=== PATIENT | male | born 1955 | race Caucasian/White ===

== ENCOUNTER 2022-09-18 14:19 | Outpatient (CLI) | payer BC | END 2022-09-18 14:20 | disposition critical access hospital (66) | LOC: EMS 14:19 | DX: M25.551 Pain in right hip (principal); R25.2 Cramp and spasm; W01.0XXA Fall on same level from slipping, tripping and stumbling without subsequent striking against object, initial encounter; Y92.002 Bathroom of unspecified non-institutional (private) residence as the place of occurrence of the external cause | CPT/HCPCS: A0425; A0429 ==

== ENCOUNTER 2022-09-18 14:25 | Emergency (ER) | payer BC ==
[2022-09-18] MEDS ORDERED: HYDROmorphone 1 MG/ML CARPUJECT IVP STA (14:39)
--- NOTE | 2022-09-18 14:41 | ED Physician Documentation ---
History of Present Illness - Stated complaint Stated Complaint: GLF/R HIP PX - Additonal information Additional information: 66-year-old male presents to the emergency department for acute right hip pain. He was repairing his shower when he stepped over the threshold tripping falling directly onto the right side. He reports that he had immediate pain in his right lateral hip and was unable to bear weight. No history of previous injury. Patient was administered to leave by his prior to arrival in the ER Review of Systems Constitutional: reports: Reviewed and negative Musculoskeletal: reports: Joint pain Neurologic: reports: Reviewed and negative Psychiatric: reports: Reviewed and negative Endocrine: reports: Reviewed and negative PD PAST MEDICAL HISTORY - Present Medications Home Medications: Ambulatory Orders Medication Instructions Recorded Confirmed No Known Home Medications 09/18/22 09/18/22 - Allergies Allergies/Adverse Reactions: Allergies Allergy/AdvReac Type Severity Reaction Status Date / Time No Known Drug Allergies Allergy Verified 09/18/22 14:45 PD ED PE NORMAL - General General: Alert and oriented X 3, No acute distress - HEENT HEENT: Atraumatic, Moist mucous membranes - Neck Neck: Supple, no meningeal sign, No adenopathy, C-Spine cleared by NEXUS criteria - Cardiac Cardiac: RRR, No murmur - Back Back: No spinal TTP (No tenderness elicited with palpation of the cervical thoracic or lumbar spine. No step-off or deformity.) - Derm Derm: Normal color, Warm and dry - Extremities Extremities: No: No tenderness to palpate (No malrotation or shortening of the right leg and hip. Tenderness elicited with palpation of the right lateral hip some spasm is appreciated. Pain laterally with internal and external rotation but not directly within the joint itself. 2+ distal pulse. Neurovascularly intact) Results - Vitals Vitals: Vital Signs - 24 hr 09/18/22 14:38 Temperature 36.4 C L Heart Rate 84 Respiratory 16 Rate Blood Pressure 164/101 H O2 Saturation 100 Oxygen O2 Source Room air - Labs Labs: Laboratory Tests 09/18/22 09/18/22 09/18/22 15:02 15:24 15:36 WBC 12.3 H RBC 4.76 Hgb 15.2 Hct 45.0 MCV 94.5 H MCH 31.9 H MCHC 33.8 RDW 12.4 Plt Count 200 MPV 8.8 Neut # (Auto) 10.4 H Lymph # (Auto) 1.1 L Gaines # (Auto) 0.7 Eos # (Auto) 0.0 Baso # (Auto) 0.0 Absolute Nucleated RBC 0.00 Nucleated RBC % 0.0 INR (Fingerstick) 1.1 Sodium 138 Potassium 4.0 Chloride 104 Carbon Dioxide 27 Anion Gap 7.0 BUN 23 H Creatinine 0.9 Estimated GFR (MDRD) 85 L Glucose 131 H Calcium 8.9 Total Bilirubin 0.5 AST 23 ALT 22 Alkaline Phosphatase 58 Total Protein 7.5 Albumin 4.5 Globulin 3.0 Albumin/Globulin Ratio 1.5 Lipase 46 - Rads (name of study) right hip Relevant Findings:: Final report received (Transcervical, angulated fracture of the right femoral neck) PD Medical Decision Making - ED course Complexity details: reviewed results, re-evaluated patient, d/w patient ED course: 66-year-old male who has no pertinent past medical history and is not anticoagulated presents emergency department after ground-level fall at home which she fell directly onto the right hip. He did strike his head but did not lose consciousness. He is unable to ambulate at home. On presentation to the emergency department he has moderate tenderness in the right lateral hip. Does not allow any range of motion. Palpable spasm is noted. An x-ray of the hip does show a transverse angulated fracture at the femoral neck. I did obtain a CBC and electrolytes and find no acute worrisome findings. He is hemodynamically stable. No hypotension or tachycardia. He is denying pain in the head cervical thoracic or lumbar spine. Unfortunately [facility] does not have orthopedic services available through the weekend. As such we have reached out to [facility] and the patient has been accepted under their auto except criteria. I spoken with the ED physician Dr. Carvajal Who has excepted the patient. It should be noted that we reached out to multiple other medical's facilities including [facility], [facility] and [facility] and we were denied for transfer or placed on a wait list. Departure - Departure Disposition: 02 Transfer Acute Care Hosp Clinical Impression: Closed right hip fracture Qualifiers: Encounter type: initial encounter Qualified Code(s): S72.001A - Fracture of unspecified part of neck of right femur, initial encounter for closed fracture Condition: Stable Record reviewed to determine appropriate education?: Yes
--- NOTE | 2022-09-18 15:01 | XRAY Report ---
PROCEDURE: Hip w/Pelvis 2-3V RT INDICATIONS: Ground-level fall, right hip pain. TECHNIQUE: AP pelvis with lateral view(s) of the right hip(s). COMPARISON: None. FINDINGS: Bones: Transcervical, angulated fracture of the right femoral neck. Soft tissues: The visualized bowel gas pattern is normal. No suspicious soft tissue calcifications. IMPRESSION: Transcervical, angulated fracture of the right femoral neck. Reviewed by: Eusebio Miller on 09/18/2022 3:00 PM PDT Approved by: Eusebio Miller on 09/18/2022 3:00 PM PDT Station ID: [id number]
[2022-09-18 15:08] LABS: BASOPHILS % (AUTO) 0.2 %; EOSINOPHILS % (AUTO) 0.1 %; HGB - HEMOGLOBIN 15.2 g/dL (14.0-18.0); LYMPHOCYTES # (AUTO) 1.1 10^3/uL (1.5-3.5); LYMPHOCYTES % (AUTO) 9.1 %; MEAN CORPUSCULAR HEMOGLOBIN 31.9 pg (27.0-31.0); MEAN CORPUSCULAR HGB CONC 33.8 g/dL (32.0-36.0); MEAN CORPUSCULAR VOLUME 94.5 fL (80.0-94.0); MEAN PLATELET VOLUME 8.8 fL (7.4-11.4); MONOCYTES # (AUTO) 0.7 10^3/uL (0.0-1.0); MONOCYTES % (AUTO) 5.5 %; NEUTROPHILS # (AUTO) 10.4 10^3/uL (1.5-6.6); NEUTROPHILS % (AUTO) 84.8 %; PLT - PLATELET COUNT 200 10^3/uL (130-450); RED BLOOD COUNT 4.76 10^6/uL (4.70-6.10); RED CELL DISTRIBUTION WIDTH 12.4 % (12.0-15.0); WHITE BLOOD COUNT 12.3 x10^3/uL (4.8-10.8)
[2022-09-18 15:41] LABS: ALBUMIN 4.5 g/dL (3.2-5.5); ALBUMIN/GLOBULIN RATIO 1.5 (1.0-2.2); BILIRUBIN,TOTAL 0.5 mg/dL (0.2-1.0); CALCIUM 8.9 mg/dL (8.5-10.3); CREATININE 0.9 mg/dL (0.6-1.2); TOTAL PROTEIN 7.5 g/dL (6.7-8.2)
[2022-09-18] MEDS ORDERED: diazePAM INJ 5 MG/ML SYRINGE IVP STA (16:04)
[2022-09-18 16:13] VITALS: BP 143/85
== END 2022-09-18 16:48 | disposition short-term general hospital (02) ==
LOC: ED 14:25
DX: S72.001A Fracture of unspecified part of neck of right femur, initial encounter for closed fracture (principal); W01.0XXA Fall on same level from slipping, tripping and stumbling without subsequent striking against object, initial encounter
CPT/HCPCS: 73502; 80053; 83690; 85025; 85610; 87635; 96374; 96375; 99285; J1170; 36415

== ENCOUNTER 2022-09-18 16:45 | Outpatient (CLI) | payer BC | END 2022-09-18 23:59 | disposition short-term general hospital (02) | LOC: EMS 16:45 | PROVIDERS: ATTEND Registered Nurse | DX: S72.051A Unspecified fracture of head of right femur, initial encounter for closed fracture (principal); W01.0XXA Fall on same level from slipping, tripping and stumbling without subsequent striking against object, initial encounter; Y93.E9 Activity, other interior property and clothing maintenance; Y92.002 Bathroom of unspecified non-institutional (private) residence as the place of occurrence of the external cause | CPT/HCPCS: A0425; A0426 ==

== ENCOUNTER 2023-04-16 08:04 | Outpatient (CLI) | payer BC ==
[2023-04-16 08:25] LABS: BASOPHILS % (AUTO) 0.2 %; EOSINOPHILS # (AUTO) 0.1 10^3/uL (0.0-0.7); EOSINOPHILS % (AUTO) 0.8 %; HCT - HEMATOCRIT 45.4 % (42.0-52.0); HGB - HEMOGLOBIN 15.5 g/dL (14.0-18.0); LYMPHOCYTES # (AUTO) 2.5 10^3/uL (1.5-3.5); LYMPHOCYTES % (AUTO) 39.6 %; MEAN CORPUSCULAR HEMOGLOBIN 31.3 pg (27.0-31.0); MEAN CORPUSCULAR HGB CONC 34.1 g/dL (32.0-36.0); MEAN CORPUSCULAR VOLUME 91.7 fL (80.0-94.0); MEAN PLATELET VOLUME 8.7 fL (7.4-11.4); MONOCYTES # (AUTO) 0.5 10^3/uL (0.0-1.0); MONOCYTES % (AUTO) 8.1 %; NEUTROPHILS # (AUTO) 3.2 10^3/uL (1.5-6.6); NEUTROPHILS % (AUTO) 51.1 %; PLT - PLATELET COUNT 241 10^3/uL (130-450); RED BLOOD COUNT 4.95 10^6/uL (4.70-6.10); RED CELL DISTRIBUTION WIDTH 12.8 % (12.0-15.0); WHITE BLOOD COUNT 6.3 x10^3/uL (4.8-10.8)
[2023-04-16 08:35] LABS: ALBUMIN 4.7 g/dL (3.2-5.5); ALBUMIN/GLOBULIN RATIO 1.5 (1.0-2.2); ALKALINE PHOSPHATASE 74 IU/L (42-121); ALT ALANINE AMINOTRANSFERASE 21 IU/L (10-60); AST ASPARTATE AMINOTRANSFERASE 21 IU/L (10-42); BILIRUBIN,TOTAL 0.7 mg/dL (0.2-1.0); BUN - BLOOD UREA NITROGEN 15 mg/dL (6-20); CALCIUM 9.9 mg/dL (8.5-10.3); CARBON DIOXIDE - CO2 29 mmol/L (21-32); CHLORIDE 104 mmol/L (101-111); CHOL/HDL RATIO 4.3 (<5.0); CHOLESTEROL 185 mg/dL; CREATININE 0.9 mg/dL (0.6-1.3); GFR - MDRD 85 (>89); GLUCOSE 116 mg/dL (74-104); HDL CHOLESTEROL 43 mg/dL; LDL CHOLESTEROL,CALCULATED 119 mg/dL; LDL/HDL RATIO 2.8 (<3.6); SODIUM 140 mmol/L (135-145); TOTAL PROTEIN 7.9 g/dL (6.4-8.9); TRIGLYCERIDES 115 mg/dL (48-352); VLDL CHOLESTEROL 23 mg/dL
[2023-04-16 08:49] LABS: THYROID STIMULATING HORMONE 2.18 uIU/mL (0.34-5.60)
[2023-04-16 09:58] LABS: ESTIMATED AVERAGE GLUCOSE 105 mg/dL (70-100); HEMOGLOBIN A1c% 5.3 % (4.27-6.07)
== END 2023-04-16 08:05 | disposition home or self-care (01) ==
LOC: LAB 08:04
PROVIDERS: ATTEND Nurse Practitioner Family
DX: R03.0 Elevated blood-pressure reading, without diagnosis of hypertension (principal); Z13.220 Encounter for screening for lipoid disorders; Z13.1 Encounter for screening for diabetes mellitus
CPT/HCPCS: 36415; 80053; 80061; 83036; 83721; 84443; 85025